=== PATIENT | female | born 1990 | race Caucasian/White ===

== ENCOUNTER 2016-05-30 19:32 | Emergency (ER) | payer OTHER ==
[~2016-05-30] VITALS: Ht 162.6 cm; Wt 100.0 kg
[2016-05-30 19:33] VITALS: BP 159/115; PULSE 98; RESP 18; O2SAT 98
[2016-05-30] MEDS ORDERED: 0.9% Sodium Chloride 1,000 ML IV ONE (20:05)
[2016-05-30] MEDS ORDERED: Ondansetron 2 mg/mL 2 mL Inj IVPUSH ONE (20:05)
--- NOTE | 2016-05-30 20:37 | DRSVH ---
PROCEDURE: X-RAY CHEST, TWO VIEWS ([id number]) INDICATIONS: fever, cough TECHNIQUE: 2 views of the chest were acquired. COMPARISON: None. FINDINGS: Surgical changes and devices: None. Lungs and pleura: No pleural effusions or pneumothorax. Lungs are clear. Mediastinum: Mediastinal contours are normal. Heart size is normal. Bones and chest wall: No suspicious bony abnormalities. Soft tissues appear unremarkable. IMPRESSION: No acute cardiopulmonary disease. Dictated by: Tal Quinonez M.D. on 05/30/2016 at 20:35 Approved by: Tal Quinonez M.D. on 05/30/2016 at 20:35
[2016-05-30 20:57] LABS: Mean Corpuscular Volume 85.1 fL (81-100)
[2016-05-30 21:00] LABS: BASOPHILS % (AUTO) 0.2 % (0-3); EOSINOPHILS % (AUTO) 1.8 % (0-5); MONOCYTES % (AUTO) 10.1 % (4-12); Mean Corpuscular Hemoglobin 28.8 pg (27.0-35.0); NEUTROPHILS % (AUTO) 61.8 % (40-74); Platelet Count 273 bil/L (150-400)
[2016-05-30 21:37] VITALS: BP 141/75; PULSE 90; RESP 20; O2SAT 98
[2016-05-30] MEDS ORDERED: ONDA4TAB9 PO (21:58)
--- NOTE | 2016-05-30 22:01 | ED.REPORT ---
HPI-General Illness Date of Service May 30, 2016 ED Provider: Marv Lloyd MD A healthy 25 year old female presents to the ED from Urgent Care with nausea and vomiting onset five days ago, on a plane ride back from [place]. Associated symptoms include intermittent subjective fever, diarrhe which is not bloody. She denies other symptoms. The patient was found to have an "abnormal" ECG at Urgent Care today. Nursing Notes Stated Complaint: EKG CHANGES Chief Complaint: Female Abdominal Pain Nursing Notes Reviewed: Yes Allergies: Coded Allergies: amoxicillin (Verified Allergy, Unknown, Rash,Itching,SOB, 05/30/16) azithromycin (Verified Allergy, Unknown, Rash,Itching,SOB, 05/30/16) Scheduled PRN Ondansetron ODT (Zofran ODT) 4 Mg Tablet 4 MG PO Q4H PRN PRN For Nausea General Time Seen by MD: 20:05 Chief Complaint Vomiting, Other (Nausea) Hx Obtained From: Patient Arrived By: Walk-in Sudden in Onset?: Yes Onset Occurred: 5 days ago Symptom Duration: Since onset Severity: Current: No pain currently Severity: Maximum: No pain Pertinent Negative: Relieved by nothing Recent Healthcare: Recent doctor visit Past Medical History Past Medical History None reported Past Surgical History None reported Social History Other Social History: Good social support Ambulatory Status Independent Review of Systems Full Review of Systems Constitutional: Reports: Fever (Intermittent) Respiratory: Denies: Non-productive cough, Shortness of breath GI: Reports: Diarrhea, Hematochezia (x1), Nausea, Vomiting Complete sys rev & neg: except as marked. Physical Exam Vital Signs Vital Signs Date Time Temp Pulse Resp B/P Pulse Ox O2 Delivery O2 Flow Rate FiO2 05/30/16 22:26 37.0 84 16 137/81 98 Room Air 05/30/16 21:37 90 20 141/75 98 Room Air 05/30/16 19:33 37.5 98 18 159/115 98 Room Air Initial VS: Reviewed Skin: Warm, Dry, No cyanosis Neurologic: Alert, Oriented, Nonfocal Psychiatric: Mood/affect normal, Behavior normal, Normal thought content General/Constitutional: Awake, Alert, No acute distress Head / Eyes: Atraumatic, Normocephalic ENT: Airway patent, Mucous membranes moist Respiratory / Chest: Breath sounds NL, Breath sounds = bilat, No respiratory distress Cardiovascular: Heart rate NL, Regular rhythm, Heart sounds NL, No gallop, No murmurs, No rubs Abdomen: Soft, Non-tender, No distention Interpretation & Diagnostics Urine Dipstick: 1.015 sp gravity ++ Leukocyte esterase +(30) Protein Normal Glucose Normal Urobilinogen ~250 Charlie/ml Blood Otherwise Negative Urine : Negative Lab Results Interpretation Result Diagram: 05/30/16 2030 05/30/16 2030 Test 05/30/16 20:30 05/30/16 21:36 05/30/16 22:18 White Blood Count 10.3th/mm3 (3.8-10.1) Red Blood Count 4.89mil/mm3 (3.90-5.20) Hemoglobin 14.1g/dL (12.0-15.6) Hematocrit 41.6% (35.0-46.0) Mean Corpuscular Volume 85.1fL (81-100) Mean Corpuscular Hemoglobin 28.8pg (27.0-35.0) Mean Corpuscular Hemoglobin Concent 33.9% (32.0-37.0) Red Cell Distribution Width 13.5% (12.3-15.4) Platelet Count 273bil/L (150-400) Neutrophils (%) (Auto) 61.8% (40-74) Lymphocytes (%) (Auto) 25.7% (14-46) Monocytes (%) (Auto) 10.1% (4-12) Eosinophils (%) (Auto) 1.8% (0-5) Basophils (%) (Auto) 0.2% (0-3) Sodium Level 139mEq/L (134-144) Potassium Level 4.1mEq/L (3.5-5.2) Chloride Level 102mEq/L (97-108) Carbon Dioxide Level 21mmol/L (18-29) Blood Urea Nitrogen 8mg/dL (6-20) Creatinine 0.60mg/dL (0.57-1.00) Estimat Glomerular Filtration Rate 176mL/min (>59) Glucose Level 95mg/dL (60-99) Calcium Level 9.7mg/dL (8.5-10.1) Magnesium Level 2.0mg/dL (1.6-2.6) Total Bilirubin 0.5mg/dL (0.0-1.2) Aspartate Amino Transf (AST/SGOT) 67U/L (0-50) Alanine Aminotransferase (ALT/SGPT) 90U/L (0-32) Alkaline Phosphatase 94U/L (25-150) Total Protein 8.3g/dL (6.4-8.4) Albumin 4.5g/dL (3.4-5.0) Lipase 33U/L (13-60) Hold Rivera Top Tube Received (Received) Hold Urine Received (Received) Urine Color Dark yellow (YELLOW) Urine Appearance Cloudy (CLEAR,HAZY) Urine pH 6.5 (5.0-8.0) Urine Specific [place] 1.010 (1.003-1.035) Urine Protein Negativemg/dL (NEG,TRACE) Urine Glucose (UA) Negativemg/dL (NEGATIVE) Urine Ketones Negativemg/dL (NEGATIVE) Urine Occult Blood Large (NEGATIVE) Urine Nitrite Negative (NEGATIVE) Urine Bilirubin Negative (NEGATIVE) Urine Urobilinogen Normalmg/dL (NORMAL) Urine Leukocyte Esterase Small (NEGATIVE) Urine RBC >50/hpf (0-2) Urine WBC 11-50/hpf (0-5) Urine Epithelial Cells Moderate/hpf (NONE-MOD) Urine Crystals None seen (NONE SEEN) Urine Bacteria Many/hpf (NONE-FEW) Urine Hyaline Casts None/lpf (NONE) Urine Granular Casts None seen (NONE SEEN) Urine Waxy Casts None seen (NONE SEEN) Urine Red Blood Cell Casts None seen (NONE SEEN) Urine White Blood Cell Casts None seen (NONE SEEN) Urine Mucus None seen (None Seen) Urine Trichomonas None seen (NONE SEEN) Urine Yeast None (NONE SEEN) Urine Culture Reflexed Indicated ECG Interpretation ECG Interpretation: Sinus tachycardia rate 105 Normal axis Normal intervals No ST or T-wave changes No prior ECG available for comparison Time: 20:01 Interpreted by: ED physician Re-Eval/Medical Decision Med Decision/Clinical Course A healthy 25 year old female presents to the ED from Urgent Care with nausea and vomiting onset five days ago, on a plane ride back from [place]. Associated symptoms include intermittent subjective fever, diarrhe which is not bloody. She denies other symptoms. The patient was found to have an "abnormal" ECG at Urgent Care today. Here in the emergency department the patient is afebrile stable vital signs include a benign abdominal examination. She appears slightly dehydrated though is nontoxic in appearance. ECG 20:01 Sinus tachycardia rate 105 Normal axis Normal intervals No ST or T-wave changes No prior ECG available for comparison Labs: CBC unremarkable CMP unremarkable but mildly elevated transaminases UA indicates + Leukocytes, large blood, nitrite negative Patient was treated with IV fluids, Zofran for nausea. Serial abdominal examinations remained benign. She reported significant symptomatic improvement. She has no UTI symptoms and while her UA demonstrates blood and leukocytes she reports that she is on her menstrual period. There are no findings suggestive of acute surgical intra-abdominal process. Her also had similar symptoms though is completely better. She reports that she is feeling much better here in the emergency department and is not having any ongoing vomiting or diarrhea. She is advised to collect a stool sample to take to her primary care physician however at this time she is afebrile, nontoxic in appearance without any bloody stool. I do not feel that empiric antibiotics are immediately indicated though bacterial etiologies are consideration given her recent History. She has been prescribed Zofran and I feel that she is stable for discharge home and follow-up with her primary care doctor for stool studies should she have recurrent diarrhea though she has not been able to give a stool sample here in the emergency room. Prior to discharge follow-up and return precautions were reviewed in detail with the patient who verbalized understanding and agreement with the plan. The patient was discharged in stable condition. She tells me that the urgent care doctor told her that her EKG was abnormal however her EKG here is completely normal. Time of Eval: 21:45 Patient Status: Condition improved Re-Evaluation/Progress Note: Discussed with patient ECG and lab results, diagnosis, and plan for discharge. Follow-up and return to the ER instructions given. Patient agrees with plan for care and all questions were addressed. Counseled Regarding: Diagnosis, Lab results, Need for follow-up, When/why to return to ED Discharge & Departure Primary Impression: Dehydration Additional Impressions: Diarrhea Diarrhea type: unspecified type Qualified Code: R19.7 - Diarrhea, unspecified Vomiting Vomiting type: unspecified Vomiting Intractability: non-intractable Nausea presence: with nausea Qualified Code: R11.2 - Nausea with vomiting, unspecified Sinus tachycardia Disposition: Home Discharge Condition All VS Reviewed: Yes Condition: Improved Additional Instructions: Thank you for seeking care at the emergency room. You were evaluated for vomiting, diarrhea, and dehydration today. Our primary goal today in the ED was to evaluate you for any life-threatening conditions. Your evaluation was reassuring. You will be discharged with a prescription for Zofran . You should follow-up with your primary doctor in the next week. You should return to the ED immediately if you develop bloody diarrhea, fevers, vomiting, cough, shortness of breath, chest pain, lightheadedness, weakness or any other concerning signs or symptoms. Thank you for letting us partake in your care today. Referrals: [facility] [employer] Portions of this note were transcribed by Noreen Chan. I, Dr. Lloyd, personally performed the history, physical exam, and medical decision-making; I reviewed and confirmed the accuracy of the information in the transcribed note. Signed by: Dori Chavira, 05/30/2016, 23:20 copies to: [facility] Marv Lloyd MD May 30, 2016 22:01 NOREEN CHAN May 30, 2016 23:14
[2016-05-30 22:26] VITALS: BP 137/81; PULSE 84; RESP 16; O2SAT 98
[2016-05-30 22:35] LABS: APPEARANCE,URINE CLOUDY (CLEAR,HAZY); COLOR,URINE DARK YELLOW (YELLOW); OCCULT BLOOD,URINE LARGE (NEGATIVE); PH,URINE 6.5 (5.0-8.0); UROBILINOGEN,URINE NORMAL (NORMAL)
== END 2016-05-30 22:26 | disposition home or self-care (01) ==
LOC: SED 19:32
DX: E86.0 Dehydration (principal); R19.7 Diarrhea, unspecified; R11.2 Nausea with vomiting, unspecified; R00.0 Tachycardia, unspecified; Z88.1 Allergy status to other antibiotic agents
CPT/HCPCS: 36415; 71020; 80053; 81000; 83690; 83735; 85025; 87086; 87088; 87186; 93005; 96361; 96374; 99285; J2405; J7030